=== PATIENT | male | born 1955 | race Caucasian/White ===

== ENCOUNTER 2017-07-10 03:26 | Emergency (ER) | payer SELFPAY ==
[2017-07-10] MEDS ORDERED: Ondansetron ODT 4 MG TAB ONE (03:38)
[2017-07-10 04:02] LABS: #Lymphocytes 1.7 thou/uL (1.20-3.40); #Monocytes 0.5 thou/uL (0.11-0.59); #Neutrophils 6.9 thou/uL (1.40-6.50); %Basophils 0.1 % (0.0-1.0); %Eosinophils 0.2 % (0.0-10.0); %Lymphocytes 18.9 % (21.0-51.0); %Monocytes 5.4 % (0.0-10.0); Hematocrit 40.1 % (42.0-52.0); Mean Platelet Volume 7.3 fL (7.4-10.4); Red Blood Cell (RBC) Count 4.22 mill/uL (4.70-6.10); White Blood Cell (WBC) Count 9.1 thou/uL (4.8-10.8)
[2017-07-10 04:20] LABS: ALT (SGPT) 20 U/L (8-55); AST (SGOT) 14 U/L (5-34); Alkaline Phosphatase 88 U/L (40-150); Anion Gap 14 mmol/L (10-20); BUN (Urea Nitrogen) 22 mg/dL (8.4-25.7); Bilirubin, Total 2.2 mg/dL (0.2-1.2); Calc. Creatinine Clearance 0 mL/min (70-130); Calcium 9.5 mg/dL (7.8-10.44); Carbon Dioxide 25 mmol/L (23-31); Chloride 100 mmol/L (98-107); Estimated GFR-MDRD 55; Globulin 2.9 g/dL (2.4-3.5); Lipase 142 U/L (8-78)
[2017-07-10] MEDS ORDERED: Adacel (T-DAP) 0.5 ML VIAL ONE (05:36)
[2017-07-10] MEDS ORDERED: Ondansetron HCl/PF 4 MG/2 ML Vial ONE (06:45)
[2017-07-10] MEDS ORDERED: Metoclopramide HCl 10 MG/2 ML VIAL ONE (07:03)
[2017-07-10] MEDS ORDERED: Promethazine HCl 25 MG/ML VIAL ONE (08:08)
[2017-07-10 08:36] LABS: Bilirubin Negative (Negative); Blood, Urine Negative (Negative); Glucose, Urine (Dipstick) 500 mg/dL (Negative); Ketone, Urine 15 mg/dL (Negative); Nitrite Negative (Negative); Protein, Urine (Dipstick) Negative (Neg-Trace); Urobilinogen 0.2 mg/dL (0.2-1.0)
[2017-07-10 08:38] LABS: Bacteria/HPF None Seen HPF (None Seen); Hyaline Casts/LPF 0-3 HYALINE CAST LPF (0-3 Hyaline); RBC/HPF None Seen HPF (0-3); Squamous Epithelial None Seen HPF (0-3); WBC/HPF None Seen HPF (0-3)
--- NOTE | 2017-07-10 10:21 | CT ---
CCT OF THE ABDOMEN AND PELVIS WITH IV CONTRAST: INDICATION: Abdominal pain in a 61-year-old male. The patient was tearing out a dilapidated house and has been h aving dry heaving and vomiting for 12 hours prior to arriving to the emergency room. COMPARISON: None. FINDINGS: There is some subsegmental volume loss within both lung bases. There is mild fatty infiltration of the liver. The gallbladder is surgically absent. The pancreas a nd adrenal glands are normal-appearing. The kidneys are normal-appearing. There is a surgical clip displaced within the right pericolonic gutter, likely from the patient's prior cholecystectomy. Ther e is a normal appendix in the right lower quadrant of the abdomen. The prostate is mildly enlarged m easuring 6.1 cm. The rectal and perirectal soft tissues are unremarkable. Sigmoid colon, descending colon, transverse colon are all decompressed. The visualized ascending colon appears within normal limits. The small bowel is of normal caliber. No drainable fluid collection is evident. No acute osseous abnormality is evident. There is scattered degenerative and osteoarthritic change. IMPRESSION: 1. No acute CT abnormality demonstrated. 2. Mild fatty infiltration of the liver. 3. Cholecystectomy. 4. Prostate enlargement. 5. Mild vascular calcification involving the abdominal aorta. POS: [facility]
[2017-07-10] MEDS ORDERED: ISOVUE-370 76%-LOCM 1 ML ONE (17:46)
[2017-07-10] MEDS ORDERED: Iopamidol 370 76% 50 ML VIAL FS ONE (17:46)
== END 2017-07-10 10:20 | disposition home or self-care (01) ==
LOC: ERS 03:26
DX: R11.2 Nausea with vomiting, unspecified (principal); R19.7 Diarrhea, unspecified; E11.9 Type 2 diabetes mellitus without complications; I10 Essential (primary) hypertension; E78.00 Pure hypercholesterolemia, unspecified; K58.9 Irritable bowel syndrome, unspecified; Z79.84 Long term (current) use of oral hypoglycemic drugs; Z79.899 Other long term (current) drug therapy
CPT/HCPCS: 36415; 36416; 74177; 80053; 81001; 83690; 85025; 90471; 90715; 93005; 96365; 96367; 96372; 96375; J2405; J2550; J2765; Q0162